=== PATIENT | female | born 1935 | race Caucasian/White ===

== ENCOUNTER → 2016-12-22 | Outpatient (CLI) | payer OTHER ==
[~2016-12-22] MED LIST: ACET-1256 PO; ALLO100T PO; AMOX500C3 PO; CALC500C70 PO; CELERY SEED PO; DIPH25CA65 PO; DMD20 PO; ITRA100C PO; MULTTAB58 PO; NAPR-1169 PO; OMEP20CA9 PO; POTA10CA28 PO; PSEU60TA80 PO; TAMO20TA47 PO; [UNRECOGNIZED DRUG - OTHER] TOP; [UNRECOGNIZED DRUG - REMARK] PO
== END | disposition home or self-care (01) ==
LOC: C.LABSPEC 15:49
PROVIDERS: ATTEND Physician Assistant
DX: I89.0 Lymphedema, not elsewhere classified (principal); L97.929 Non-pressure chronic ulcer of unspecified part of left lower leg with unspecified severity

== ENCOUNTER → 2017-01-06 | Outpatient (CLI) | payer OTHER ==
[2017-01-06 12:21] LABS: BASO % 0.7 %; BASO ABS # 0.06 K/uL (0-0.2); COMPLETE YES; EOS % 3.5 %; HEMATOCRIT 37.3 % (37-47); IG% 0.9 %; LYMPH % 18.7 %; MEAN CELL VOLUME 91.6 fL (80-100); MEAN CORPUSCULAR HEMOGLOBIN 29.5 pg (25-34); MEAN CORPUSCULAR HGB CONC 32.2 g/dl (32-36); MEAN PLATELET VOLUME 9.4 fL (7.4-10.4); MONO % 6.8 %; NEUT % 69.4 %; PLATELET COUNT 365 K/uL (130-400); RED BLOOD COUNT 4.07 M/uL (4.2-5.4); WHITE BLOOD COUNT 8.54 K/uL (4.8-10.8)
[2017-01-06 12:41] LABS: ALT/SGPT 19 U/L (12-78); AST/SGOT 24 U/L (15-37); BLOOD UREA NITROGEN 41 mg/dl (7-18); BUN/CREATININE RATIO 27.3 (10-20); CALCIUM 8.8 mg/dl (8.5-10.1); CARBON DIOXIDE 25 mmol/L (21-32); CHLORIDE 103 mmol/L (98-107); GLUCOSE 102 mg/dl (70-99); POTASSIUM 5.1 mmol/L (3.5-5.1); SODIUM 137 mmol/L (136-145)
[2017-01-06 12:43] LABS: ALB/GLOB RATIO 0.9 (0.9-2); ALKALINE PHOSPHATASE 81 U/L (45-117)
== END | disposition home or self-care (01) ==
LOC: C.LAB1850 09:59
PROVIDERS: ATTEND Internal Medicine Infectious Disease
DX: L03.115 Cellulitis of right lower limb (principal); M15.9 Polyosteoarthritis, unspecified

== ENCOUNTER → 2017-07-06 | Outpatient (CLI) | payer OTHER ==
[~2017-07-06] MED LIST changes: -AMOX500C3 PO; -ITRA100C PO; -TAMO20TA47 PO; +TAMO20TA9 PO
== END | disposition home or self-care (01) ==
LOC: C.CPL 09:13
PROVIDERS: ATTEND Physician Assistant
DX: R06.02 Shortness of breath (principal)

== ENCOUNTER → 2017-08-15 | Outpatient (CLI) | payer OTHER ==
[2017-08-16 10:59] VITALS: PULSE 75; O2SAT 96
== END | disposition home or self-care (01) ==
LOC: C.RC 17:04
PROVIDERS: ATTEND Physician Assistant
DX: R06.02 Shortness of breath (principal); R09.02 Hypoxemia

== ENCOUNTER → 2017-09-19 | Outpatient (CLI) | payer OTHER ==
--- NOTE | 2017-09-19 09:43 | DIAGNOSTIC IMAGING REPORT ---
(CHEST) THORAX WITHOUT CT DOSE: 1025.31 mGy.cm HISTORY: Dyspnea R06.02 Shortness of cyjhseJ78.02 IgfnoipJ94.9 Mixed restrictive TECHNIQUE: Multiaxial CT images of the chest were performed without contrast. A dose lowering technique was utilized adhering to the principles of ALARA. COMPARISON: None. FINDINGS: Lungs are considered clear. There is no significant interstitial lung change. There is minimal dependent atelectatic change. Mild cardiomegaly. No significant mediastinal or hilar adenopathy. No focal infiltrative change. Considerable degenerative changes thoracic spine. Patient is post right mastectomy. IMPRESSION: No acute process of the chest. Lungs are considered clear. Considerable degenerative change thoracic spine. Severe degenerative change of the shoulders bilaterally with bilateral joint effusions and/or bursal fluid. The above report was generated using voice recognition software. It may contain grammatical, syntax or spelling errors. Electronically signed by: Mk Johnson M.D. 09/19/2017 9:42 AM Dictated Date/Time: 09/19/2017 9:35 AM
== END | disposition home or self-care (01) ==
LOC: C.CTS 09:06
PROVIDERS: ATTEND Physician Assistant
DX: J44.9 Chronic obstructive pulmonary disease, unspecified (principal); J98.4 Other disorders of lung; R06.02 Shortness of breath; R09.02 Hypoxemia

== ENCOUNTER 2019-07-19 09:12 | Inpatient (IN) ==
--- NOTE | 2019-07-19 09:41 | Emergency Department Note ---
Entered by Laurie Ramirez acting as a scribe for Terry Linares DO History of Present Illness General Chief complaint: Shortness of Breath/Dyspnea Stated complaint: SOB,OPEN WOUNDS ON LEG Time Seen by Provider: 07/19/19 09:19 Source: patient History of Present Illness Onset (ago): hour(s) (0800 today) Location: left (lung) and right (lung) Severity: similar to prior episodes Pain Consistency: + other (persistent) Maximum Pain Intensity: 0 Quality: + other (shortness of breath) Exacerbated By: + movement and + other (lying flat) Associated symptoms: + shortness of breath and + other (Positive wounds on legs. Negative abdominal pain, recent known weight gain.); no chest pain, no fever/chills and no nausea/vomiting Treatments prior to arrival: other (supplmental oxygen) The patient is an 83 year old male presenting to the Emergency Department complaining of persistent shortness of breath starting at 0800 today. The patient reports that she is more short of breath than normal. She states that she was told that theres crackling in her lungs when she was at the wound clinic [employer]. She explains that she has open wounds on her legs from cellulitis and is being seen at the wound clinic for them. She explains that walking around and lying flat worsens her shortness of breath. She notes that she uses supplemental oxygen at home as needed. She adds that she used supplemental oxygen [employer]. The patient reports that she has experienced these symptoms before as she follows with a orthopedic tech for breathing problems. She states that she took none of her morning medications [employer]. The patient denies chest pain, fevers, chills, nausea, vomiting, abdominal pain and any known recent weight gain. Home Medications Home Medications Medication Instructions Recorded Confirmed Type Prilosec OTC 20 mg PO QAM 02/28/18 07/19/19 History albuterol sulfate [Ventolin HFA] 2 puff INHALATION Q6H PRN 02/28/18 07/19/19 History lorazepam [Ativan] 0.5 mg PO DAILY PRN 02/28/18 07/19/19 History naproxen 500 mg PO BID 02/28/18 07/19/19 History potassium chloride 20 mEq 20 meq PO BID tab 03/01/18 07/19/19 History tablet,extended release calcium carbonate [Calcium 600] 600 mg PO QAM 06/08/18 07/19/19 History diphenhydramine HCl 25 mg capsule 50 mg PO HS 05/17/19 07/19/19 History furosemide 40 mg tablet 40 mg PO QID tab 05/17/19 07/19/19 History tamoxifen 20 mg tablet 20 mg PO QAM 05/17/19 07/19/19 History clindamycin HCl 300 mg capsule 300 mg PO tid #42 cap 07/16/19 07/19/19 Rx fluticasone propion-salmeterol 1 inh INHALATION BID 07/19/19 07/19/19 History [Wixela Inhub] guaifenesin [Mucinex] 600 mg PO BID 07/19/19 07/19/19 History hydrocodone-acetaminophen [[place]] 1 tab PO Q6H PRN 07/19/19 07/19/19 History levofloxacin [Levaquin] 500 mg PO QAM 07/19/19 07/19/19 History fazkwbzs-wsc-LZ-lycopen-lutein 1 tab PO QAM 07/19/19 07/19/19 History [Centrum Silver] tiotropium bromide [Spiriva 1 puff INHALATION QAM 07/19/19 07/19/19 History Respimat] Allergies Allergy/AdvReac Type Severity Reaction Status Date / Time doxycycline Allergy Intermediate Hives Verified 07/19/19 09:40 adhesive Allergy Unknown REDNESS TO Verified 07/19/19 09:40 SKIN Past Med/Surg History Medical History GERD (gastroesophageal reflux disease) (Chronic) Hearing deficit History of cellulitis B/L, had x 4 years, recently started following with wound clinic, has now resolved. Hx of breast cancer 1980 Lymphedema Morbid obesity Numbness and tingling in both hands d/t carpal tunnel On home oxygen therapy uses at night and with exertinal activities Restrictive lung disease suspect pulmonary HTN Urinary incontinence Venous insufficiency (chronic) (peripheral) (Chronic) Surgical History History of right hip replacement Hx of cataract extraction both eyes Hx of right mastectomy Hx of total knee replacement both knees Social History Preferred Language: Angolan Communication Ability: Effective Communication Tools: Picture Board, Facial Expression and Physical Gestures Visual Impairment: No Limitations Beliefs That Will Affect Care: None marital status: / Current Living Situation: Family current occupational status: retired Feels Safe at Home: Yes Smoking Status: Never smoker Hx Alcohol Use: No Hx Substance Use: No caffeine: Yes Physical Activity Frequency: Does not Exercise Seatbelt Use: always Sunscreen Use: Yes Sexual Activity: has been sexually active, but not for at least 12 months Review of Systems See HPI for pertinent positives & negatives. and A total of 10 systems reviewed and were otherwise negative Physical Exam Vital Signs Vital Signs - 24 hr 07/19/19 09:12 07/19/19 09:13 07/19/19 09:39 Temperature 36.3 C L Temperature Source Oral Pulse Rate 86 Pulse Rate [Left] Respiratory Rate 22 Respiratory Effort / Characteristics Non-Labored Spontaneous Respiratory Depth Normal Respiratory Pattern Regular Blood Pressure 177/93 H Blood Pressure [Left Arm] Blood Pressure Mean 121 Blood Pressure Mean [Left Arm] Blood Pressure Position Sitting Pulse Oximetry 90 100 100 Oxygen Delivery Method Room Air Nasal Cannula Nasal Cannula Nasal Cannula Oxygen Flow Rate 0 3 2 Sepsis Recent Fever Within 48 Hours No Sepsis New/Unexplained Change in Mental Status No Sepsis Action Taken by Nursing No Action Required Oxygen Flow Rate - Titration 2 Pulse Oximetry Post Tiitration 99 07/19/19 11:12 07/19/19 13:00 Temperature Temperature Source Pulse Rate Pulse Rate [Left] 84 84 Respiratory Rate 18 18 Respiratory Effort / Characteristics Respiratory Depth Respiratory Pattern Blood Pressure Blood Pressure [Left Arm] 171/119 H 176/83 H Blood Pressure Mean Blood Pressure Mean [Left Arm] 136 114 Blood Pressure Position Pulse Oximetry 100 100 Oxygen Delivery Method Nasal Cannula Nasal Cannula Oxygen Flow Rate 2 2 Sepsis Recent Fever Within 48 Hours Sepsis New/Unexplained Change in Mental Status Sepsis Action Taken by Nursing Oxygen Flow Rate - Titration Pulse Oximetry Post Tiitration GENERAL: The patient is awake and alert. She is comfortable appearing and does not appear to be in pain or uncomfortable. EYES: The conjunctivae are clear. The pupils are round and reactive. EARS, NOSE, MOUTH AND THROAT: The nose is without any evidence of any deformity. Mucous membranes are moist. Tongue is midline. NECK: The neck is nontender and supple. RESPIRATORY: Diminished breath sounds are noted at both bases. CARDIOVASCULAR: Regular rate and rhythm noted there no murmurs rubs or gallops normal S1 normal S2. GASTROINTESTINAL: The abdomen is soft. Abdomen is nontender. MUSCULOSKELETAL/EXTREMITIES: There is no evidence of gross deformity full range of motion is noted in the hips and shoulders. SKIN: Pedal edema was noted bilaterally. Wound dressings are in place. There is erythema and venous stasis changes in both lower extremities. NEUROLOGIC: Patient is awake alert and oriented x3. Course Course 09: The patient was evaluated in room A3, and a complete history and physical examination were performed. 1056: I reevaluated the patient at this time who reports that she is feeling somewhat better. 1155: I updated the patient at this time. 1202: I reevaluated the patient at this time. 1212: I discussed the patient's case with Dr. Amaro - [facility] [place]. She will evaluate the patient for further management. Administered Medications Discontinued Medications Furosemide (Lasix) 40 mg IV NOW STA Stop: 07/19/19 10:59 Last Admin: 07/19/19 11:07 Dose: 40 mg Documented by: [id number] Medical Decision Making Differential Diagnosis Differential diagnoses includes but is not limited to pneumonia, bronchitis, COPD/Asthma exacerbation, pneumothorax, pulmonary embolism, congestive heart f ailure, acute coronary syndrome. Medical Records Attestation: I reviewed the patient's medical records. Home Medications Current Medication List: was personally reviewed by me Laboratory Data Attestation: I reviewed the patient's lab results. Result diagrams: 07/19/19 09:40 07/19/19 09:40 Lab Results 07/19/19 07/19/19 07/19/19 Range/Units 09:40 09:40 09:40 WBC 7.95 (4.8-10.8) K/uL RBC 4.29 (4.2-5.4) M/uL Hgb 12.7 (12.0-16.0) g/dL Hct 39.1 (37-47) % MCV 91.1 (80-100) fL MCH 29.6 (25-34) pg MCHC 32.5 (32-36) g/dL RDW Std Deviation 49.1 H (36.4-46.3) fL RDW Coeff of Pedro 14.7 H (11.5-14.5) % Plt Count 414 H (130-400) K/uL MPV 9.3 (7.4-10.4) fL Immature Gran % (Auto) 1.0 % Neut % (Auto) 63.3 % Lymph % (Auto) 23.1 % Winston % (Auto) 8.4 % Eos % (Auto) 3.3 % Baso % (Auto) 0.9 % Immature Gran # (Auto) 0.08 H (0.00-0.02) K/uL Neut # (Auto) 5.03 (1.4-6.5) K/uL Lymph # (Auto) 1.84 (1.2-3.4) K/uL Winston # (Auto) 0.67 H (0.11-0.59) K/uL Eos # (Auto) 0.26 (0-0.5) K/uL Baso # (Auto) 0.07 (0-0.2) K/uL PT 10.5 (9.0-12.0) Seconds INR 1.0 (0.9-1.1) APTT 22.8 (21.0-31.0) Seconds PTT Ratio 0.8 Sodium 141 (136-145) mmol/L Potassium 4.1 (3.5-5.1) mmol/L Chloride 107 (98-107) mmol/L Carbon Dioxide 29 (21-32) mmol/L Anion Gap 6.0 (3-11) BUN 29 H (7-18) mg/dl Creatinine 1.33 H (0.6-1.2) mg/dl Est Cr Clr Drug Dosing Not Reportable Est GFR ( Amer) 42.4 Est GFR (Non-Af Amer) 36.6 BUN/Creatinine Ratio 21.7 H (10-20) Glucose 106 H (70-99) mg/dl Calcium 9.2 (8.5-10.1) mg/dl Magnesium 2.2 (1.8-2.4) mg/dl Total Bilirubin 0.5 (0.2-1) mg/dl AST 38 H (15-37) U/L ALT 29 (12-78) U/L Alkaline Phosphatase 92 (45-117) U/L Troponin I 0.031 (0-0.045) ng/ml NT-Pro-B Natriuret Pep 113 (0-1800) pg/ml Total Protein 7.8 (6.4-8.2) gm/dl Albumin 3.5 (3.4-5.0) gm/dl Globulin 4.3 H (2.5-4.0) gm/dl Albumin/Globulin Ratio 0.8 L (0.9-2) Imaging Data Radiologist's Impression: Radiology results as stated below per my review and the radiologist's interpretation: XR chest 1V portable HISTORY: Dyspnea COMPARISON: Chest CT 05/23/2019. Chest 05/17/2019. FINDINGS: No pneumothorax. No pleural effusions. The heart remains mildly enlarged. Perihilar interstitial and vascular thickening consistent with mild congestive change. No radha pulmonary edema. No new focal lung consolidations to suggest pneumonia. Advanced degenerative changes within the shoulders is again noted. IMPRESSION: Mild central pulmonary vascular congestion without overt edema. ACT 112: Negative or not required by law. Electronically signed by: Rasheed Lazaro M.D. 07/19/2019 9:56 AM ECG Data Attestation: I personally reviewed and interpreted this ECG as follows: Indication: + SOB/dyspnea Rate (beats per minute): 85 Rhythm: + normal sinus ECG Findings: + LVH (LVH by voltage criteria. ) and + Other (Lateral ST abnormalities. ); no PACs and no PVCs Comparison ECG Date: from (07/06/17) Change: no significant change Blood Pressure Blood Pressure Findings: Elevated blood pressure Blood Pressure Disposition: further management by hospitalist ASTON Narrative The patient is an 83-year-old female who presented to the emergency department for an evaluation of difficulty breathing. The patient has peripheral edema which is bilateral. Currently she is being treated at the [facility]. She was seen there today and sent to the emergency department because of the degree of her edema. The patient was treated with IV Lasix in the emergency department. She did have a detectable troponin although her EKG shows no acute change and she does not specifically complain of chest pain. I discussed the patient's laboratory and radiographic studies with her and her family members. Because of her symptoms I do feel she may require further cardiac work-up as an inpatient. For this reason I discussed her case with the on-call [facility] hospitalist group. They have agreed to evaluate the patient in the emergency department for further management and disposition. Impression & Plan Pulmonary edema, Peripheral edema, Dyspnea on exertion Discharge Plan Visit Data Chief Complaint: Shortness of Breath/Dyspnea Stated Complaint: SOB,OPEN WOUNDS ON LEG ED Provider: Terry Linares Discharge Problem: Pulmonary edema, Peripheral edema, Dyspnea on exertion Patient Disposition: Being Evaluated by Hospitalist Discharge Instructions Interventions: ED Discharge Assessment Last Done: 07/19/19 14:53 Forms Stand Alone Forms: My [facility] Prescriptions Prescriptions: No Action potassium chloride 20 mEq tablet extended release 20 meq PO BID RF: 0 clindamycin HCl 300 mg capsule 300 mg PO tid Qty: 42 RF: 1 diphenhydramine HCl [Benadryl] 25 mg capsule 50 mg PO HS RF: 0 Prilosec OTC 20 mg Tablet,Delayed Release (Dr/Ec) 20 mg PO QAM RF: 0 naproxen 500 mg Tablet 500 mg PO BID RF: 0 lorazepam [Ativan] 0.5 mg Tablet 0.5 mg PO DAILY PRN (Reason: Anxiety) RF: 0 albuterol sulfate [Ventolin HFA] 90 mcg/actuation Hfa Aerosol Inhaler 2 puff INHALATION Q6H PRN (Reason: sob) RF: 0 furosemide [Lasix] 40 mg tablet 40 mg PO QID RF: 0 tamoxifen 20 mg tablet 20 mg PO QAM RF: 0 calcium carbonate [Calcium 600] 600 mg calcium (1,500 mg) Tablet 600 mg PO QAM RF: 0 fluticasone propion-salmeterol [Wixela Inhub] 250-50 mcg/dose blister with device 1 inh INHALATION BID RF: 0 Centrum Silver 0.4-300-250 mg-mcg-mcg Tablet 1 tab PO QAM RF: 0 Spiriva Respimat 2.5 mcg/actuation mist 1 puff INHALATION QAM RF: 0 guaifenesin [Mucinex] 600 mg Tablet Extended Release 12hr 600 mg PO BID RF: 0 hydrocodone-acetaminophen [[place]] 5-325 mg tablet 1 tab PO Q6H PRN (Reason: Pain) RF: 0 levofloxacin [Levaquin] 500 mg tablet 500 mg PO QAM RF: 0 Referrals Referrals: Kenzie Ruvalcaba DO [Primary Care Provider] - Discharge Problem: Pulmonary edema Qualifiers: Chronicity: acute Qualified Code(s): J81.0 - Acute pulmonary edema The scribe's documentation has been prepared under my direction and personally reviewed by me in its entirety. I confirm that the note above accurately reflec ts all work, treatment, procedures, and medical decision making performed by me.
[2019-07-19 09:51] LABS: Basophils # (auto) 0.07 K/uL (0-0.2); Basophils % (auto) 0.9 %; Eosinophils # (auto) 0.26 K/uL (0-0.5); Eosinophils % (auto) 3.3 %; Hematocrit (blood only) 39.1 % (37-47); Hemoglobin 12.7 g/dL (12.0-16.0); Immature Granulocytes # (auto) 0.08 K/uL (0.00-0.02); Lymphocytes # (auto) 1.84 K/uL (1.2-3.4); Lymphocytes % (auto) 23.1 %; Mean Corpuscular Hemoglobin 29.6 pg (25-34); Mean Corpuscular Hgb Conc 32.5 g/dL (32-36); Mean Corpuscular Volume 91.1 fL (80-100); Mean Platelet Volume 9.3 fL (7.4-10.4); Monocytes # (auto) 0.67 K/uL (0.11-0.59); Monocytes % (auto) 8.4 %; Neutrophils # (auto) 5.03 K/uL (1.4-6.5); Neutrophils % (auto) 63.3 %; Platelet Count 414 K/uL (130-400); RDW Coefficient of Variation 14.7 % (11.5-14.5); RDW Standard Deviation 49.1 fL (36.4-46.3); Red Blood Count 4.29 M/uL (4.2-5.4); White Blood Count 7.95 K/uL (4.8-10.8)
--- NOTE | 2019-07-19 09:58 | XRay Report ---
XR chest 1V portable HISTORY: Dyspnea COMPARISON: Chest CT 05/23/2019. Chest 05/17/2019. FINDINGS: No pneumothorax. No pleural effusions. The heart remains mildly enlarged. Perihilar interst itial and vascular thickening consistent with mild congestive change. No radha pulmonary edema. No ne w focal lung consolidations to suggest pneumonia. Advanced degenerative changes within the shoulders is again noted. IMPRESSION: Mild central pulmonary vascular congestion without overt edema. ACT 112: Negative or not required by law. Electronically signed by: Rasheed Lazaro M.D. 07/19/2019 9:56 AM
[2019-07-19 10:01] LABS: Partial Thromboplastin Ratio 0.8; Partial Thromboplastin Time 22.8 Seconds (21.0-31.0); Prothrombin Time 10.5 Seconds (9.0-12.0)
[2019-07-19 10:07] LABS: Alanine Aminotransferase 29 U/L (12-78); Albumin Level 3.5 gm/dl (3.4-5.0); Aspartate Aminotransferase 38 U/L (15-37); BUN Creatinine Ratio 21.7 (10-20); Blood Urea Nitrogen 29 mg/dl (7-18); Calcium 9.2 mg/dl (8.5-10.1); Carbon Dioxide 29 mmol/L (21-32); Chloride 107 mmol/L (98-107); Est GFR (African American) 42.4; Est GFR (Non-African American) 36.6; Glucose 106 mg/dl (70-99); Magnesium 2.2 mg/dl (1.8-2.4); Potassium 4.1 mmol/L (3.5-5.1); Sodium 141 mmol/L (136-145)
[2019-07-19 10:12] LABS: Albumin Globulin Ratio 0.8 (0.9-2); Alkaline Phosphatase 92 U/L (45-117); Bilirubin,Total 0.5 mg/dl (0.2-1); Globulin 4.3 gm/dl (2.5-4.0); NT Pro B Type Natriuretic Pept 113 pg/ml (0-1800); Total Protein 7.8 gm/dl (6.4-8.2); Troponin I 0.031 ng/ml (0-0.045)
[2019-07-19] MEDS ORDERED: FUROSEMIDE 40 MG/4 ML VIAL IV STA (10:58)
--- NOTE | 2019-07-19 13:25 | History & Physical Report ---
Date of Service July 19, 2019 Assessment & Plan (1) Acute and chronic respiratory failure: Admits to telemetry Likely due to mild pulmonary edema and ongoing restrictive lung disease Vital signs every 4 hours Continue supplemental oxygen to keep oxygenation above 92% Started duo nebs every 4 hours and as as needed per RT BNP pending, procalcitonin pending Troponent x3 pending and EKG Started aspirin 81 mg p.o. daily Blood cultures/sputum and urine cultures pending to rule out possible infectious etiology DVT prophylaxis Heparin 5000 units every 12 hours Full code Present on Admission?: Yes (2) Pulmonary edema: As the above She was switched from Lasix 40 mg p.o. daily to 40 mg IV daily. Restart Lasix as necessary to achieve net negative output at least 1 L/day Strict in and out Daily weight Free p.o. water restriction to 1200 mils per day Low-sodium diet TTE pending Present on Admission?: Yes (3) Peripheral edema: As the above Present on Admission?: Yes (4) Dyspnea on exertion: As discussed above Due to multifactorial issues: Structural lung disease and mild pulmonary edema. Present on Admission?: Yes (5) Bilateral lower leg cellulitis: Wound culture pending Continue home dose clindamycin 300 mg p.o. 3 times daily, levofloxacin 500 mg p.o. every morning Wound care with RN Present on Admission?: Yes (6) Ambulatory dysfunction: Physical and Occupational Therapy to prevent falls. Disposition: Patient states that after discharge she is going home and she has caregivers 17/01. She is not looking forward to be discharged to long term facility. 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 The patient reports shortness of breath is worsening and she was told that she has crackles in her lungs when she went to wound clinic [employer]. Patient reports that she goes to the wound clinic for lower extremities lymphedema with cellulitis and ulcers and that they prescribe her levofloxacin for 10 days and clindamycin for 14 days. Patient started medication on July 16, 2018. Patient reports using supplemental oxygen at home as needed but in fact all the time approximately 3 L. Patient walks around with a canister of oxygen. Patient denies fever, chills, abdominal pain, frequency, urgency, syncope or near syncope. Patient lives by herself at home but has caregivers 17/01 as well as her daughter visits her regularly. EKG shows normal sinus rhythm with LVH. No significant changes in comparison to the prior EKG. labs are reviewed WBC 7.95, hemoglobin 12.7, hematocrit 39.1, platelets 414, PT 10.5, INR 1, APTT 22.8, PTT ratio 0.8, sodium 141, potassium 4.1, chloride 107, carbon dioxide 29, anion gap 6, BUN 29, creatinine 1.33, GFR 36.6, AST 38, ALT 29, alkaline phosphatase 92, troponin 0.0 31, total protein 7.8, albumin 3.5, globulin 4.3. Chest x-ray is shows mild mild concentric pulmonary vascular congestion without overt edema. Allergies Allergy/AdvReac Type Severity Reaction Status Date / Time doxycycline Allergy Intermediate Hives Verified 07/19/19 09:40 adhesive Allergy Unknown REDNESS TO Verified 07/19/19 09:40 SKIN Home Medications Home Medications Medication Instructions Recorded Confirmed Type Prilosec OTC 20 mg PO QAM 02/28/18 07/19/19 History albuterol sulfate [Ventolin HFA] 2 puff INHALATION Q6H PRN 02/28/18 07/19/19 History lorazepam [Ativan] 0.5 mg PO DAILY PRN 02/28/18 07/19/19 History naproxen 500 mg PO BID 02/28/18 07/19/19 History potassium chloride 20 mEq 20 meq PO BID tab 03/01/18 07/19/19 History tablet,extended release calcium carbonate [Calcium 600] 600 mg PO QAM 06/08/18 07/19/19 History diphenhydramine HCl 25 mg capsule 50 mg PO HS 05/17/19 07/19/19 History furosemide 40 mg tablet 40 mg PO QID tab 05/17/19 07/19/19 History tamoxifen 20 mg tablet 20 mg PO QAM 05/17/19 07/19/19 History clindamycin HCl 300 mg capsule 300 mg PO tid #42 cap 07/16/19 07/19/19 Rx fluticasone propion-salmeterol 1 inh INHALATION BID 07/19/19 07/19/19 History [Wixela Inhub] guaifenesin [Mucinex] 600 mg PO BID 07/19/19 07/19/19 History hydrocodone-acetaminophen [[place]] 1 tab PO Q6H PRN 07/19/19 07/19/19 History levofloxacin [Levaquin] 500 mg PO QAM 07/19/19 07/19/19 History amxubcmy-rpy-WX-lycopen-lutein 1 tab PO QAM 07/19/19 07/19/19 History [Centrum Silver] tiotropium bromide [Spiriva 1 puff INHALATION QAM 07/19/19 07/19/19 History Respimat] Past Med/Surg History Medical History GERD (gastroesophageal reflux disease) (Chronic) Hearing deficit History of cellulitis B/L, had x 4 years, recently started following with wound clinic, has now resolved. Hx of breast cancer 1980 Lymphedema Morbid obesity Numbness and tingling in both hands d/t carpal tunnel On home oxygen therapy uses at night and with exertinal activities Restrictive lung disease suspect pulmonary HTN Urinary incontinence Venous insufficiency (chronic) (peripheral) (Chronic) Surgical History History of right hip replacement Hx of cataract extraction both eyes Hx of right mastectomy Hx of total knee replacement both knees Social History Preferred Language: Polish Communication Ability: Effective Communication Tools: Picture Board, Facial Expression and Physical Gestures Visual Impairment: No Limitations Beliefs That Will Affect Care: None marital status: / Current Living Situation: Family current occupational status: retired Feels Safe at Home: Yes Smoking Status: Never smoker Hx Alcohol Use: No Hx Substance Use: No caffeine: Yes Physical Activity Frequency: Does not Exercise Seatbelt Use: always Sunscreen Use: Yes Sexual Activity: has been sexually active, but not for at least 12 months Review of Systems Review of Systems: All systems reviewed & are unremarkable except as noted in HPI & below Physical Exam Constitutional: WD/WN, vitals as above well developed and + morbidly obese Eyes: PERRL, conjunctivae normal, anicteric sclerae ENMT: external ear and nose normal, oropharynx normal Neck: trachea midline, no thyromegaly Respiratory: normal respiratory effort, + respiratory distress, + labored breathing and + uses accessory muscles Auscultation: + wheezes Cardiovascular: Rate/Rhythm: regular rate and regular rhythm Heart Sounds: normal S1 and normal S2 Palpation: + palpable S4 Vessels: + JVD and dorsalis pedis pulses present Gastrointestinal (Abdomen): normal bowel sounds, soft, nontender, no hepatosplenomegaly Musculoskeletal: no cyanosis or clubbing, extremities motor strength 5/5 Skin: no rashes, warm and dry + skin tightening, + erythema (Lower extremities bilaterally) and + skin hypertrophy (The lower extremities bilaterally) Lower extremity is swollen with redness and erythema bilaterally over the inman extended to the ankles, pitting edema. Neurologic: patellar DTR's 2+ bilat, sensation intact Psychiatric: A+Ox3, euthymic affect Lymphatic: no cervical or axillary lymphadenopathy Results & Data Vital Signs (Past 12 Hours) Vital Signs Temp Pulse Pulse Resp BP BP Pulse Ox 07/19/19 13:00 84 18 176/83 H 100 07/19/19 11:12 84 18 171/119 H 100 07/19/19 09:39 100 07/19/19 09:13 36.3 C L 86 22 177/93 H 100 07/19/19 09:12 90 Code Status & VTE Plan Code Status Full code VTE Prophylaxis Plan VTE Prophylaxis will be ordered: Yes PG Care Time/CCT Total # of Minutes Spent Total Time Spent with Patient: Total time spent is greater than 50% in coordination of care (as documented) at patient's floor/unit and/or counseling patient: Coding Level of Care Code 74439 Initial Inpt Care Lvl 3 Diagnoses Acute and chronic respiratory failure J96.20 Pulmonary edema J81.0 Chronicity: acute Peripheral edema R60.9 Dyspnea on exertion R06.09 Bilateral lower leg cellulitis L03.116; L03.115 Ambulatory dysfunction R26.2 (1) Pulmonary edema Chronicity: acute Qualified Code(s): J81.0 - Acute pulmonary edema
[2019-07-19] MEDS ORDERED: POLYETHYLENE (MIRALAX) 17 GM PACK PO PRN (15:52)
[2019-07-19] MEDS ORDERED: ALUMINUM/MAGNESIUM SUSP 30 ML UDC PO PRN (15:52)
[2019-07-19] MEDS ORDERED: MAGNESIUM HYDROXIDE SUSP 30 ML UDC PO PRN (15:52)
[2019-07-19] MEDS ORDERED: ALBUTEROL HFA 8 GM INHALER INH PRN (15:52)
[2019-07-19] MEDS ORDERED: LORazepam 0.5 MG TAB PO PRN (15:52)
[2019-07-19] MEDS ORDERED: ACETAMINOPHEN 325 MG TAB PO PRN (15:52)
[2019-07-19] MEDS ORDERED: ONDANSETRON INJ 2 MG/ML 2 ML VIAL IV PRN (15:52)
[2019-07-19] MEDS ORDERED: HYDROCODONE/ACETAMOPHEN 5/325MG TAB PO PRN (16:29)
[2019-07-19 16:42] LABS: Thyroid Stimulating Hormone 6.62 uIu/ml (0.300-4.500); Troponin I 0.031 ng/ml (0-0.045)
[2019-07-19 19:22] LABS: Appearance Urine Clear (Clear); Bilirubin Urine Negative (Negative); Blood Urine Negative (Negative); Color Urine Yellow; Glucose Urine UA Negative (Negative); Ketones Urine Negative (Negative); Leukocyte Esterase Urine Negative (Negative); Nitrite Urine Negative (Negative); Protein Urine Negative (Negative); Specific Gravity Urine 1.016 (1.000-1.030); Urobilinogen Urine Negative (Negative)
[2019-07-19] MEDS: ASPIRIN 81 MG ECTAB PO SCH (20:11)
[2019-07-19] MEDS: CLINDAMYCIN HCL 150 MG CAP PO SCH ×2 (20:11→21:05)
[2019-07-19] MEDS: POTASSIUM CHLORIDE 20 MEQ TABCR PO SCH (20:13)
[2019-07-19] MEDS: guaiFENesin 600 MG TABCR PO SCH (20:14)
[2019-07-19] MEDS: NAPROXEN 250 MG TAB PO SCH (20:14)
[2019-07-19] MEDS: UMECLIDINIUM BROMIDE 62.5MCG/BLISTER 7 PUFFS/INHALER INH SCH (20:15)
[2019-07-19] MEDS: levoFLOXacin 500 MG TAB PO SCH (20:16)
[2019-07-19] MEDS: HEPARIN SOD 5,000 UNIT/0.5 ML VIAL SQ SCH (20:25)
[2019-07-19] MEDS ORDERED: FLUTICASONE/VILANTEROL 100/25MCG 14 PUFFS/INHALER INH SCH (21:00)
--- NOTE | 2019-07-20 05:47 | Electrocardiogram Report ---
Test Reason : Blood Pressure : / mmHG Vent. Rate : 085 BPM Atrial Rate : 085 BPM P-R Int : 190 ms QRS Dur : 098 ms QT Int : 388 ms P-R-T Axes : 053 -18 057 degrees QTc Int : 461 ms Poor data quality, interpretation may be adversely affected Normal sinus rhythm Moderate voltage criteria for LVH, may be normal variant Borderline ECG When compared with ECG of 06-JUL-2017 09:24, No significant change was found Confirmed by Melchor Oconnor ([id number]) on 07/20/2019 5:47:18 AM Referred By: Jeff Chaparro Confirmed By:Melchor Oconnor
[2019-07-20 07:02] LABS: Basophils # (auto) 0.04 K/uL (0-0.2); Basophils % (auto) 0.8 %; Eosinophils # (auto) 0.24 K/uL (0-0.5); Eosinophils % (auto) 4.5 %; Hematocrit (blood only) 34.9 % (37-47); Hemoglobin 11.2 g/dL (12.0-16.0); Immature Granulocytes # (auto) 0.06 K/uL (0.00-0.02); Immature Granulocytes % (auto) 1.1 %; Lymphocytes # (auto) 1.42 K/uL (1.2-3.4); Lymphocytes % (auto) 26.7 %; Mean Corpuscular Hemoglobin 29.2 pg (25-34); Mean Corpuscular Hgb Conc 32.1 g/dL (32-36); Mean Corpuscular Volume 91.1 fL (80-100); Mean Platelet Volume 9.3 fL (7.4-10.4); Monocytes # (auto) 0.44 K/uL (0.11-0.59); Monocytes % (auto) 8.3 %; Neutrophils # (auto) 3.12 K/uL (1.4-6.5); Neutrophils % (auto) 58.6 %; Platelet Count 348 K/uL (130-400); RDW Coefficient of Variation 14.7 % (11.5-14.5); RDW Standard Deviation 49.5 fL (36.4-46.3); Red Blood Count 3.83 M/uL (4.2-5.4); White Blood Count 5.32 K/uL (4.8-10.8)
[2019-07-20 07:37] LABS: BUN Creatinine Ratio 21.9 (10-20); Calcium 8.3 mg/dl (8.5-10.1); Creatinine Clr Calc Pharmacy 47.5 ml/min; Est GFR (African American) 51.7; Est GFR (Non-African American) 44.6; Potassium 3.7 mmol/L (3.5-5.1)
[2019-07-20 07:40] LABS: Albumin Globulin Ratio 0.8 (0.9-2); Bilirubin,Total 0.6 mg/dl (0.2-1); Globulin 3.7 gm/dl (2.5-4.0); Total Protein 6.7 gm/dl (6.4-8.2)
[2019-07-20 07:52] LABS: Estimated Average Glucose 120 mg/dl; Hemoglobin A1C 5.8 % (4.5-5.6)
[2019-07-20] MEDS: guaiFENesin 600 MG TABCR PO SCH (08:29)
[2019-07-20] MEDS: UMECLIDINIUM BROMIDE 62.5MCG/BLISTER 7 PUFFS/INHALER INH SCH (08:30)
[2019-07-20] MEDS: POTASSIUM CHLORIDE 20 MEQ TABCR PO SCH (08:30)
[2019-07-20] MEDS: HEPARIN SOD 5,000 UNIT/0.5 ML VIAL SQ SCH (08:30)
[2019-07-20] MEDS: CLINDAMYCIN HCL 150 MG CAP PO SCH ×2 (08:31→13:54)
[2019-07-20] MEDS: NAPROXEN 250 MG TAB PO SCH (08:31)
[2019-07-20] MEDS: ASPIRIN 81 MG ECTAB PO SCH (08:31)
[2019-07-20] MEDS ORDERED: FUROSEMIDE 40 MG/4 ML VIAL IV SCH (09:00)
[2019-07-20] MEDS ORDERED: CEROVITE ADV FORMULA TAB PO SCH (09:00)
[2019-07-20] MEDS ORDERED: PANTOprazole 40 MG TAB PO SCH (09:00)
[2019-07-20] MEDS ORDERED: FUROSEMIDE 40 MG in SYRINGE 0 ML IV SCH ×2 (09:00→17:00)
[2019-07-20] MEDS ORDERED: TAMOXIFEN CITRATE 10 MG TABLET PO SCH (09:00)
[2019-07-20] MEDS ORDERED: CALCIUM 600MG + VIT D 400 IU TAB PO SCH (09:00)
--- NOTE | 2019-07-20 09:38 | Hospitalist Progress Note ---
Date of Service July 20, 2019 Subjective Discussed with provider at PCP office ([facility], Champ Hong): no previous echo in last year, sleep study - none Results & Data Vital Signs (Past 12 Hours) Vital Signs Temp Pulse Pulse Resp BP Pulse Ox 07/20/19 07:32 36.7 C 81 18 149/78 H 98 07/20/19 07:00 75 07/20/19 04:00 36.7 C 80 20 148/71 H 97 07/19/19 23:00 36.6 C 98 H 86 20 112/62 97 PG Care Time/CCT Total # of Minutes Spent Total Time Spent with Patient: Total time spent is greater than 50% in coordination of care (as documented) at patient's floor/unit and/or counseling patient: Coding
[2019-07-20] MEDS: levoFLOXacin 500 MG TAB PO SCH (16:36)
--- NOTE | 2019-07-20 19:11 | Discharge Summary ---
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 The patient reports shortness of breath is worsening and she was told that she has crackles in her lungs when she went to wound clinic [facility]. Patient reports that she goes to the wound clinic for lower extremities lymphedema with cellulitis and ulcers and that they prescribe her levofloxacin for 10 days and clindamycin for 14 days. Patient started medication on July 16, 2018. Patient reports using supplemental oxygen at home as needed but in fact all the time approximately 3 L. Patient walks around with a canister of oxygen. Patient denies fever, chills, abdominal pain, frequency, urgency, syncope or near syncope. Patient lives by herself at home but has caregivers 17/01 as well as her daughter visits her regularly. EKG shows normal sinus rhythm with LVH. No significant changes in comparison to the prior EKG. labs are reviewed WBC 7.95, hemoglobin 12.7, hematocrit 39.1, platelets 414, PT 10.5, INR 1, APTT 22.8, PTT ratio 0.8, sodium 141, potassium 4.1, chloride 107, carbon dioxide 29, anion gap 6, BUN 29, creatinine 1.33, GFR 36.6, AST 38, ALT 29, alkaline phosphatase 92, troponin 0.0 31, total protein 7.8, albumin 3.5, globulin 4.3. Chest x-ray is shows mild mild concentric pulmonary vascular congestion without overt edema. Admission Exam Per Admitting Provider Constitutional: WD/WN, vitals as above well developed and + morbidly obese Eyes: PERRL, conjunctivae normal, anicteric sclerae ENMT: external ear and nose normal, oropharynx normal Neck: trachea midline, no thyromegaly Respiratory: normal respiratory effort, + respiratory distress, + labored breathing and + uses accessory muscles Auscultation: + wheezes Cardiovascular: Rate/Rhythm: regular rate and regular rhythm Heart Sounds: normal S1 and normal S2 Palpation: + palpable S4 Vessels: + JVD and dorsalis pedis pulses present Gastrointestinal (Abdomen): normal bowel sounds, soft, nontender, no hepatosplenomegaly Musculoskeletal: no cyanosis or clubbing, extremities motor strength 5/5 Skin: no rashes, warm and dry + skin tightening, + erythema (Lower extremities bilaterally) and + skin hypertrophy (The lower extremities bilaterally) Lower extremity is swollen with redness and erythema bilaterally over the inman extended to the ankles, pitting edema. Neurologic: patellar DTR's 2+ bilat, sensation intact Psychiatric: A+Ox3, euthymic affect Lymphatic: no cervical or axillary lymphadenopathy Principal Diagnosis Shortness of breath, decreased urination Discharge Exam Constitutional well developed and + morbidly obese; no acute distress Eyes PERRL, conjunctivae normal, anicteric sclerae ENMT external ear and nose normal, oropharynx normal Neck trachea midline, no thyromegaly Respiratory normal respiratory effort; no respiratory distress, no labored breathing and does not use accessory muscles Auscultation: no crackles, no rales, no rhonchi and no wheezes Cardiovascular Rate/Rhythm: regular rate and regular rhythm Heart Sounds: no murmur Gastrointestinal (Abdomen) normal bowel sounds, soft, nontender, no hepatosplenomegaly Musculoskeletal no cyanosis or clubbing, extremities motor strength 5/5 Skin + skin tightening and + erythema (Lower extremities bilaterally) Neurologic moves all extremities and awake; no focal motor deficits and not confused Psychiatric A+Ox3, euthymic affect Discharge Data Allergies Allergy/AdvReac Type Severity Reaction Status Date / Time doxycycline Allergy Intermediate Hives Verified 07/24/19 09:49 adhesive Allergy Unknown REDNESS TO Verified 07/24/19 09:49 SKIN amoxicillin [From Augmentin] Allergy Unknown Unknown Verified 07/24/19 09:49 ciprofloxacin Allergy Unknown Unknown Verified 07/24/19 09:49 clavulanic acid Allergy Unknown Unknown Verified 07/24/19 09:49 [From Augmentin] lisinopril Allergy Unknown Unknown Verified 07/24/19 09:49 Consultations 07/19/19 12:13 ED Decision to Admit Stat 07/19/19 15:52 Consult Case Management - Discharge Planning Routine Ordered Studies Echocardiogram Interpretation: 1. Normal left ventricular size with hyperdynamic systolic function. EF 70%. No regional wall motion abnormalities. Mild concentric left ventricular hypertrophy. 2. Mild mitral regurgitation. 3. Mild to moderate tricuspid regurgitation. 4. Moderate pulmonary hypertension; estimated RVSP 51 mmHg. 5. Technically difficult study, enhanced with IV definity. 6. Compared to prior study Hospital Course (1) Pulmonary edema: Cecile Jean-Baptiste is an 83 year old female admitted overnight to [facility] from July 19 to 2019 due to concern from her wound care appointment for worsening leg swelling, shortness of breath and decreased urination. I understand the main concern was her decreased urination suggestive of worsening renal function however her creatinine was at her baseline and no protein noted on urine analysis. She was treated with intravenous lasix overnight and advised to stay for continued diuresis to see if we could reduce her leg edema further as there is concern your oral lasix is no longer being effective if her urination has decreased. Benefits and risks were discussed and she wished to continue to be treated as an outpatient. Since there has been no acute change in her Echocardiogram; confirmed high right heart pressures suggestive that some of her leg edema is treatable with diuretics and she may benefit with referral to heart failure clinic or switching lasix to bumex but recommended discussing this with her primary care physician. I suspect much of her peripheral edema is due to chronic lymphedema and she was advised to treat this with increased mobility, elevating legs when at rest and leg wraps. She was reviewed wound care (please see separate instructions for dressing changes recommended to your lower extremity wounds). She was instructed to follow up with wound care on discharge Cecile felt she was at her baseline and was concerned her depression/anxiety would get worse while in hospital and requested discharge. (2) Peripheral edema: (3) Dyspnea on exertion: (4) Bilateral lower leg cellulitis: (5) Ambulatory dysfunction: Total Time Total Time Spent Total Time Spent (In Minutes): 55 Total Time Includes: Examination of the Patient, Discharge Planning and Medication Reconciliation Discharge Plan Discharge Items Patient Disposition: Home - Home Health Services Reason For Visit: SOB Discharge Diagnosis: Shortness of breath, decreased urination Condition on Discharge: Fair Activity: Resume your previous activity Non-emergency contact: Primary Care Provider Call non-emergency contact if: you have any medication questions and your symptoms worsen Follow-up/Referrals: Kenzie Ruvalcaba DO [Primary Care Provider] - Diet: Low Sodium (2gm) Addtl Attending Provider Instructions: You were admitted overnight to [facility] from July 19 to 2019 due to concern at your wound care appointment for worsening leg swelling, shortness of breath and decreased urination. I understand the main concern was for your renal function which is at it's baseline with no protein noted on urine analysis. You were treated with intravenous lasix and advised to stay for continued dosing to see if we could reduce your leg edema further as there is concern your oral lasix is no longer being effective if your urination has decreased. Benefits and risks were discussed and you wished to continued to be treated as an outpatient. Since there has been no acute change in your Echocardiogram confirmed high right heart pressures suggestive that some of your leg edema is treatable with diuretics and you may benefit with referral to heart failure clinic or switching your lasix to bumex but recommend discussing this with your primary care physician. However these findings are similar to you echocardiogram in November 2017. I suspect much of your edema is due to chronic lymphedema which is mainly treated with increased mobility, elevating legs when at rest and leg wraps. You were also reviewed by our wound care nurse (please see separate instructions for dressing changes recommended to your lower extremity wounds). Please follow up with the wound care clinic on discharge (call [phone]) for blood and urine culture results and continue on current antibiotics. No changes to your medications are recommended at this time. Kind regards, Dr Anand Smith Pending Studies at Discharge: Yes (blood and wound culture results.) Stand-Alone Forms: My [facility] [employer], Smoking Cessation Medications and DC Order Prescriptions: Continued potassium chloride 20 mEq tablet extended release 20 meq PO BID RF: 0 clindamycin HCl 300 mg capsule 300 mg PO tid Qty: 42 RF: 1 diphenhydramine HCl [Benadryl] 25 mg capsule 50 mg PO HS RF: 0 Prilosec OTC 20 mg Tablet,Delayed Release (Dr/Ec) 20 mg PO QAM RF: 0 naproxen 500 mg Tablet 500 mg PO BID RF: 0 lorazepam [Ativan] 0.5 mg Tablet 0.5 mg PO DAILY PRN (Reason: Anxiety) RF: 0 albuterol sulfate [Ventolin HFA] 90 mcg/actuation Hfa Aerosol Inhaler 2 puff INHALATION Q6H PRN (Reason: sob) RF: 0 furosemide [Lasix] 40 mg tablet 40 mg PO QID RF: 0 tamoxifen 20 mg tablet 20 mg PO QAM RF: 0 calcium carbonate [Calcium 600] 600 mg calcium (1,500 mg) Tablet 600 mg PO QAM RF: 0 fluticasone propion-salmeterol [Wixela Inhub] 250-50 mcg/dose blister with device 1 inh INHALATION BID RF: 0 Centrum Silver 0.4-300-250 mg-mcg-mcg Tablet 1 tab PO QAM RF: 0 Spiriva Respimat 2.5 mcg/actuation mist 1 puff INHALATION QAM RF: 0 Hold Instructions: trial off guaifenesin [Mucinex] 600 mg Tablet Extended Release 12hr 600 mg PO BID RF: 0 hydrocodone-acetaminophen [Cohocton] 5-325 mg tablet 1 tab PO Q6H PRN (Reason: Pain) RF: 0 levofloxacin [Levaquin] 500 mg tablet 500 mg PO QAM RF: 0 No Action aspirin [Adult Low Dose Aspirin] 81 mg tablet,delayed release (DR/EC) 81 mg PO DAILY RF: 0 (DME) Aerochamber MV Spacer See Rx Instructions .ROUTE .MEDSUPPLY Qty: 1 RF: 0 Discharge Orders: Discharge Order (Routine); Ordered 07/20/19 Ordered By: Anand Smith Admission Data Admit Date/Time: 07/19/19 15:40 Attending Provider: Anand Smith Admit Provider: Mary Amaro Primary Care Provider: Kenzie Rvualcaba Other Interventions: Discharge Summary Assessment (RN) Last Done: 07/20/19 18:22 DC Date/Time DO NOT enter until pt leaves facility: 07/20/19 20:05 Coding Level of Care Code D/C Day Management >30 mins Diagnoses Pulmonary edema J81.0 Chronicity: acute Peripheral edema R60.9 Dyspnea on exertion R06.09 Bilateral lower leg cellulitis L03.116; L03.115 Ambulatory dysfunction R26.2
== END 2019-07-20 20:05 | disposition home health service (06) | DRG 189 ==
LOC: ED 09:12 → 2W 14:53 → SUATTDRO 15:40 → 2W 15:40
DX: Z79.1 Long term (current) use of non-steroidal anti-inflammatories (NSAID); R26.2 Difficulty in walking, not elsewhere classified; K21.9 Gastro-esophageal reflux disease without esophagitis; Z79.899 Other long term (current) drug therapy; L97.221 Non-pressure chronic ulcer of left calf limited to breakdown of skin; L03.116 Cellulitis of left lower limb; E66.01 Morbid (severe) obesity due to excess calories; I27.23 Pulmonary hypertension due to lung diseases and hypoxia; L03.115 Cellulitis of right lower limb; Z91.048 Other nonmedicinal substance allergy status; I89.0 Lymphedema, not elsewhere classified; Z99.81 Dependence on supplemental oxygen; J81.1 Chronic pulmonary edema; Z79.51 Long term (current) use of inhaled steroids; Z68.43 Body mass index [BMI] 50.0-59.9, adult; J96.20 Acute and chronic respiratory failure, unspecified whether with hypoxia or hypercapnia; Z79.810 Long term (current) use of selective estrogen receptor modulators (SERMs); Z88.1 Allergy status to other antibiotic agents; J98.4 Other disorders of lung; Z85.3 Personal history of malignant neoplasm of breast; Z90.11 Acquired absence of right breast and nipple